=== PATIENT | female | born 2000 | race Caucasian/White ===

== ENCOUNTER 2022-03-09 01:22 | Emergency (ER) | payer SELFPAY ==
[~2022-03-09] VITALS: Ht 162.6 cm; Wt 60.2 kg
[2022-03-09 01:33] VITALS: BP 131/81
[2022-03-09] MEDS ORDERED: METHYLPREDNISOLONE SOD SUCC 125 MG/2 ML VIAL IM ONE (01:45)
[2022-03-09] MEDS ORDERED: FAMOTIDINE 20MG TABLET PO ONE (01:45)
[2022-03-09] MEDS ORDERED: DIPHENHYDRAMINE 50MG/ML VIAL IM ONE (01:45)
[2022-03-09] MEDS ORDERED: P50 PO (03:19)
[2022-03-09] MEDS ORDERED: DIPH25TA62 PO (03:19)
== END 2022-03-09 03:44 | disposition home or self-care (01) ==
LOC: ER 01:22
DX: L50.9 Urticaria, unspecified (principal); T78.49XA Other allergy, initial encounter; X58.XXXA Exposure to other specified factors, initial encounter
CPT/HCPCS: 81025; 87070; 87430; 96372; 99284; J1200; J2930